=== PATIENT | male | born 2000 | race Caucasian/White ===

== ENCOUNTER 2023-11-16 13:46 | Emergency (ER) | payer OTHER ==
[2023-11-16] MEDS: IBUPROFEN 600 MG TAB PO STA (14:43)
--- NOTE | 2023-11-16 15:10 | XR ---
EXAMINATION TYPE: XR knee complete LT DATE OF EXAM: 11/16/2023 COMPARISON: NONE HISTORY: Pain TECHNIQUE: Three views are submitted. FINDINGS: Joint spaces are preserved. Osseous structures are intact. No acute fracture seen. IMPRESSION: 1. No acute fracture or dislocation.
--- NOTE | 2023-11-16 15:14 | XR ---
EXAMINATION TYPE: XR shoulder complete RT DATE OF EXAM: 11/16/2023 COMPARISON: NONE HISTORY: Pain TECHNIQUE: Three views are submitted. FINDINGS: The osseous structures are intact. There is no acute fracture or dislocation. The AC joint is maint ained. IMPRESSION: 1. No acute process.
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
[2023-11-16 15:56] VITALS: BP 108/70; PULSE 79; RESP 17; TEMP 98.4
== END 2023-11-16 15:31 | disposition home or self-care (01) ==
LOC: EC 13:46
DX: S49.91XA Unspecified injury of right shoulder and upper arm, initial encounter (principal); M25.562 Pain in left knee; F17.290 Nicotine dependence, other tobacco product, uncomplicated; F12.90 Cannabis use, unspecified, uncomplicated; V89.2XXA Person injured in unspecified motor-vehicle accident, traffic, initial encounter; Y92.411 Interstate highway as the place of occurrence of the external cause
CPT/HCPCS: 99284